=== PATIENT | female | born 1965 | race Two or more races ===

== ENCOUNTER 2017-05-17 11:23 | Emergency (ER) | payer MEDICAID, OTHER ==
[~2017-05-17] VITALS: Ht 160 cm; Wt 70.3 kg
[2017-05-17] MEDS ORDERED: QUETIAPINE FUM400 MG ORAL (11:59)
[2017-05-17] MEDS ORDERED: DEPAKOTE ER500 MG ORAL ×2 (11:59→12:20)
--- NOTE | 2017-05-17 12:18 | Emergency Room Report ---
History of Present Illness General Chief Complaint: Medication Refill Present Illness HPI 51-year-old female presents to the emergency department requesting medication refill for Seroquel and Depakote. Patient is prescribed these medications to manage her schizophrenia. Patient states she's been out of her medication since yesterday she reports difficulty sleeping and she also noticed some mild constipation this morning when she had to strain to use the bathroom. Patient denies abdominal pain, nausea, vomiting, rashes, diarrhea, blood in the stool or black tarry stools. Patient denies SI/HI, delusions, or hallucinations. Denies CP, Palpitations, LOC, AMS, dizziness, Changes in Vision, Sensation, paresthesias, or a sudden severe headache. Allergies: Coded Allergies: No Known Allergies (Unverified , 05/17/17) Patient History Past Medical History: see triage record, psych hx Past Surgical History: none Pertinent Family History: none Now: No Reviewed Nursing Documentation: PMH: Agreed, PSxH: Agreed Nursing Documentation-PMH History Of Psychiatric Problem: Yes - schydsofrenia Review of Systems All Other Systems: negative except mentioned in HPI Physical Exam Vital Signs Date Time Temp Pulse Resp B/P (MAP) Pulse Ox O2 Delivery O2 Flow Rate FiO2 05/17/17 11:48 97.5 86 17 94/63 95 Room Air Sp02 EP Interpretation: reviewed, normal General Appearance: no apparent distress, alert, GCS 15, non-toxic Head: normocephalic, atraumatic Eyes: bilateral eye normal inspection, bilateral eye PERRL ENT: hearing grossly normal, normal voice Neck: full range of motion Respiratory: lungs clear, normal breath sounds, speaking full sentences Cardiovascular #1: regular rate, rhythm Gastrointestinal: non tender, soft, no guarding, no rebound Rectal: deferred Musculoskeletal: back normal, gait/station normal, normal range of motion Neurologic: alert, oriented x3, responsive, motor strength/tone normal, sensory intact, speech normal Psychiatric: other - flattened affect Skin: normal color, no rash, warm/dry, well hydrated Medical Decision Making PA Attestation Dr. Smith is my supervising Physician whom patient management has been discussed with. Diagnostic Impression: Primary Impression: Encounter for medication refill ER Course 51-year-old female presents to the emergency department requesting medication refill for Seroquel and Depakote. Patient is prescribed these medications to manage her schizophrenia. Patient states she's been out of her medication since yesterday she reports difficulty sleeping and she also noticed some mild constipation this morning when she had to strain to use the bathroom. Patient denies abdominal pain, nausea, vomiting, rashes, diarrhea, blood in the stool or black tarry stools. Patient denies SI/HI, delusions, or hallucinations. Denies CP, Palpitations, LOC, AMS, dizziness, Changes in Vision, Sensation, paresthesias, or a sudden severe headache. Ddx considered but are not limited to: drug seeking, OD, exacerbation of psychiatric symptoms just to name a few. Vital signs: are WNL, pt. is afebrile H&PE are most consistent with need for medication refill. ORDERS: none required at this time, the diagnosis is clinical ED INTERVENTIONS: None required at this time. DISCHARGE: At this time pt. is stable for d/c to home. Will provide printed patient care instructions, and any necessary prescriptions. Care plan and follow up instructions have been discussed with the patient prior to discharge. Last Vital Signs Date Time Temp Pulse Resp B/P (MAP) Pulse Ox O2 Delivery O2 Flow Rate FiO2 05/17/17 11:48 97.5 86 17 94/63 95 Room Air Disposition: HOME, SELF-CARE Condition: Stable Scripts Docusate Sodium* (COLACE*) 100 Mg Capsule 100 MG ORAL TWICE A DAY, #30 CAP Prov: Gail Herrera P.A. 05/17/17 Divalproex Sodium* (DEPAKOTE ER*) 500 Mg Tab.er.24h 500 MG ORAL DAILY for 20 Days, #20 TAB Prov: Gail Herrera P.A. 05/17/17 Quetiapine Fumarate (SEROQUEL) 300 Mg Tablet 300 MG ORAL QHS for 20 Days, #20 TAB Prov: Gail Herrera P.A. 05/17/17 Patient Instructions: Medicine Refill at the Emergency Department Additional Instructions: Take medications as directed. Follow up with a Primary Care Provider in 3-5 days, even if your symptoms have resolved. --Please review list of primary care clinics, if you do not already have a primary care provider Return sooner to ED if new symptoms occur, or current symptoms become worse. Do not drink alcohol, drive, or operate heavy machinery while taking Seroquel as this may cause drowsiness. - Please note that this Emergency Department Report was dictated using [employer] retention specialist technology software, occasionally this can lead to erroneous entry secondary to interpretation by the dictation equipment. Gail Herrera May 17, 2017 12:18
[2017-05-17] MEDS ORDERED: SEROQUEL300 MG ORAL (12:20)
[2017-05-17 12:27] VITALS: BP 101/75
[2017-05-17] MEDS ORDERED: COLACE100 MG ORAL (21:51)
== END 2017-05-17 12:29 | disposition home or self-care (01) ==
LOC: EMR 12:08
DX: Z76.0 Encounter for issue of repeat prescription (principal); F20.9 Schizophrenia, unspecified
CPT/HCPCS: 99282

== ENCOUNTER 2017-05-19 19:17 | Emergency (ER) | payer OTHER ==
[~2017-05-19] VITALS: Ht 160 cm; Wt 70.3 kg
[~2017-05-19 19:17] MED LIST: COLACE100 MG ORAL; DEPAKOTE ER500 MG ORAL; QUETIAPINE FUM400 MG ORAL; SEROQUEL300 MG ORAL
[2017-05-19] MEDS ORDERED: SEROQUEL200 MG ORAL (20:34)
[2017-05-19 20:41] VITALS: BP 135/86
--- NOTE | 2017-05-19 21:27 | Emergency Room Report ---
History of Present Illness General Chief Complaint: Medication Refill Source: Patient Present Illness HPI The patient is a 51-year-old female presenting for medication refill. She states that she is in between primary doctors and has an appointment in the next week. She is a history of schizophrenia and takes Seroquel which she has run out of today. She takes 200 mg daily. She denies any symptoms including pain, headache, dizziness, anxiety, depression, SI, sleeping difficulties, N, V , F, CP, SOB Allergies: Coded Allergies: No Known Allergies (Unverified , 05/17/17) Patient History Past Medical History: see triage record Pertinent Family History: none Last Menstrual Period: Apr Reviewed Nursing Documentation: PMH: Agreed, PSxH: Agreed Nursing Documentation-PMH History Of Psychiatric Problem: Yes - SCHIZOPHRENIA Review of Systems All Other Systems: negative except mentioned in HPI Physical Exam Vital Signs Date Time Temp Pulse Resp B/P (MAP) Pulse Ox O2 Delivery O2 Flow Rate FiO2 05/19/17 19:59 97.5 86 16 135/86 99 Room Air Sp02 EP Interpretation: reviewed, normal General Appearance: no apparent distress, alert, GCS 15, non-toxic Head: normocephalic, atraumatic Eyes: bilateral eye normal inspection, bilateral eye PERRL ENT: hearing grossly normal, normal pharynx, no angioedema, normal voice Respiratory: chest non-tender, lungs clear, normal breath sounds, speaking full sentences Cardiovascular #1: regular rate, rhythm, no edema Gastrointestinal: normal bowel sounds, non tender, soft, non-distended, no guarding, no rebound Musculoskeletal: back normal, gait/station normal, normal range of motion, non- tender Neurologic: alert, responsive, motor strength/tone normal, sensory intact, speech normal Psychiatric: no suicidal/homicidal ideation, no delusions Skin: normal color, no rash, warm/dry, well hydrated Medical Decision Making PA Attestation Dr. Herndon is my supervising physician. Patient management was discussed with my supervising physician Diagnostic Impression: Primary Impression: Encounter for medication refill ER Course The patient is a 51-year-old female presenting for medication refill. Differential diagnosis considered not limited to: Medication refill, schizophrenia, side effect, among others Physical exam: No apparent distress The patient is alert and responsive Lungs are clear to auscultation bilaterally RRR Skin is warm and dry. No rash The patient is given her a refill of Seroquel. She states she has an appointment with her new primary doctor on 05/25. ER precautions are given Last Vital Signs Date Time Temp Pulse Resp B/P (MAP) Pulse Ox O2 Delivery O2 Flow Rate FiO2 05/19/17 19:59 97.5 86 16 135/86 99 Room Air Status: improved Disposition: HOME, SELF-CARE Condition: Improved Scripts Quetiapine Fumarate* (SEROQUEL*) 200 Mg Tablet 200 MG ORAL DAILY, #20 TAB Prov: CECILIA BEAULIEU 05/19/17 Patient Instructions: Medicine Refill at the Emergency Department Additional Instructions: I discussed my findings with the patient. All questions and concerns have been answered. Treatment and medication compliance have been addressed. I advised the patient that they need to follow up with PMD in 3-5 days. Return to ED if symptoms worsen, new symptoms arise, or if needed for any reason. Patient verbalized understanding of discharge instructions. The patient will followup with her primary doctor as was discussed with her and her daughter CECILIA BEAULIEU May 19, 2017 21:27
== END 2017-05-19 20:41 | disposition home or self-care (01) ==
LOC: EMR 20:17
DX: Z76.0 Encounter for issue of repeat prescription (principal); F20.9 Schizophrenia, unspecified
CPT/HCPCS: 99284

== ENCOUNTER 2017-08-20 17:58 | Emergency (ER) | payer OTHER ==
[~2017-08-20] VITALS: Ht 160 cm; Wt 83.9 kg
[~2017-08-20 17:58] MED LIST changes: +SEROQUEL200 MG ORAL
[2017-08-20 19:55] VITALS: BP_SYST 122; BP_SYST 126; BP_DIAS 74; BP_DIAS 80
== END 2017-08-20 19:55 | disposition left against medical advice (07) ==
LOC: EMR 19:18
DX: F91.9 Conduct disorder, unspecified (principal); Z53.21 Procedure and treatment not carried out due to patient leaving prior to being seen by health care provider
CPT/HCPCS: 99282

== ENCOUNTER 2017-12-03 22:51 | Emergency (ER) | payer OTHER ==
[~2017-12-03] VITALS: Ht 160 cm; Wt 91.2 kg
--- NOTE | 2017-12-03 23:15 | Emergency Room Report ---
History of Present Illness General Chief Complaint: Edema Source: Patient, Family Member Present Illness HPI This is a 52-year-old no pain or trauma. No shortness of breath. She is in a wheelchair. Denies any chest pain. No history of high blood pressure or diabetes. Nothing made it better. Nothing made it worse. Allergies: Coded Allergies: No Known Allergies (Unverified , 05/17/17) Patient History Past Medical History: see triage record, old chart reviewed, psych hx Past Surgical History: other Pertinent Family History: none Social History: Denies: smoking Now: No Immunizations: other Reviewed Nursing Documentation: PMH: Agreed; PSxH: Agreed Review of Systems Eye: Denies: eye pain, blurred vision ENT: Denies: ear pain, nose congestion, throat swelling Respiratory: Denies: cough, shortness of breath Cardiovascular: Denies: chest pain, palpitations Gastrointestinal: Denies: abdominal pain, diarrhea, nausea, vomiting Musculoskeletal: Denies: back pain, joint pain Skin: Denies: rash Neurological: Denies: headache, numbness Endocrine: Denies: increased thirst, increased urine Hematologic/Lymphatic: Denies: easy bruising All Other Systems: negative except mentioned in HPI Physical Exam Vital Signs Date Time Temp Pulse Resp B/P (MAP) Pulse Ox O2 Delivery O2 Flow Rate FiO2 12/03/17 23:08 97.8 93 16 145/97 94 Room Air 97.9 vitals with high blood pressure Sp02 EP Interpretation: reviewed, normal General Appearance: well appearing, no apparent distress, alert, obese Head: normocephalic, atraumatic Eyes: bilateral eye PERRL, bilateral eye EOMI ENT: hearing grossly normal, normal pharynx Neck: full range of motion, supple, no meningismus Respiratory: chest non-tender, lungs clear, normal breath sounds, other - exam is limited because patient will not take off her to listen to her lungs and chest. Cardiovascular #1: regular rate, rhythm, no murmur Gastrointestinal: normal bowel sounds, non tender, no mass, no organomegaly, no bruit, non-distended Musculoskeletal: back normal, normal range of motion, other - 1+ pitting edema to lower extremity Psychiatric: mood/affect normal Skin: warm/dry Medical Decision Making Diagnostic Impression: Primary Impression: Peripheral edema ER Course Patient presents with peripheral edema. No evidence of CHF, pneumonia, DVT bilaterally. We'll discharge home. Lab Results Impression labs unremarkable Chest X-Ray Diagnostic Results Chest X-Ray Diagnostic Results : Chest X-Ray Ordered: Yes # of Views/Limited/Complete: 1 View Indication: Shortness of Breath EP Interpretation: Yes Interpretation: no consolidation, no effusion, no pneumothorax, no acute cardiopulmonary disease Impression: No acute disease Electronically Signed by: Oracio Carcamo MD Last Vital Signs Date Time Temp Pulse Resp B/P (MAP) Pulse Ox O2 Delivery O2 Flow Rate FiO2 12/03/17 23:08 97.8 93 16 145/97 94 Room Air 97.9 Status: improved Disposition: HOME, SELF-CARE Condition: Stable Scripts Furosemide* (LASIX*) 20 Mg Tablet 20 MG ORAL DAILY, #7 TAB Prov: ORACIO CARCAMO M.D. 12/04/17 Patient Instructions: Peripheral Edema Additional Instructions: Follow-up with your doctor in 7 days. Return if symptom worsen. ORACIO CARCAMO M.D. Dec 03, 2017 23:15
[2017-12-03 23:54] LABS: BASOPHILS % (AUTO) 1.1 % (0.0-2.0); EOSINOPHILS % (AUTO) 4.5 % (0.0-3.0); HEMATOCRIT 37.7 % (37.0-47.0); HEMOGLOBIN 12.5 G/DL (12.0-16.0); LYMPHOCYTES % (AUTO) 38.6 % (20.0-45.0); MEAN CORPUSCULAR VOLUME 90 FL (80-99); MONOCYTES % (AUTO) 11.4 % (1.0-10.0); NEUTROPHILS % (AUTO) 44.4 % (45.0-75.0); PLATELET COUNT 215 K/UL (150-450); RED BLOOD COUNT 4.18 M/UL (4.20-5.40); RED CELL DISTRIBUTION WIDTH 13.9 % (11.6-14.8); WHITE BLOOD COUNT 8.1 K/UL (4.8-10.8)
[2017-12-04 00:03] LABS: ANION GAP 9 mmol/L (5-15); BLOOD UREA NITROGEN 16 mg/dL (7-18); CALCIUM 9.6 MG/DL (8.5-10.1); CARBON DIOXIDE 26 MMOL/L (21-32); CHLORIDE 101 MMOL/L (98-107); CREATININE 0.9 MG/DL (0.55-1.30); POTASSIUM 4.4 MMOL/L (3.5-5.1); SODIUM 136 MMOL/L (136-145)
[2017-12-04 00:36] VITALS: BP 145/97
[2017-12-04] MEDS ORDERED: FUROSEMIDE20 M1 ORAL (00:55)
[2017-12-04 01:22] VITALS: BP 142/90
--- NOTE | 2017-12-04 10:01 | Diagnostic Imaging Report ---
Indication: Shortness of breath Technique: One view of the chest Comparison: 09/07/2007 Findings: Inspiration is suboptimal. Heart size is borderline enlarged. There is mild central venous congestion. No focal airspace consolidation. Pleural spaces are clear. Impression: Borderline cardiomegaly with mild central pulmonary venous congestion. Correlate with clinical findings Negative for infiltrate
== END 2017-12-04 01:23 | disposition home or self-care (01) ==
LOC: EMR 23:00
DX: R60.0 Localized edema (principal); Z99.3 Dependence on wheelchair
CPT/HCPCS: 36415; 71045; 80048; 83880; 84484; 85025; 96372; 99283; J1940